=== PATIENT | female | born 1995 | race Caucasian/White ===

== ENCOUNTER 2019-02-28 14:52 | Emergency (ER) | payer BC, OTHER ==
[~2019-02-28] VITALS: Ht 165.1 cm; Wt 73.9 kg
[~2019-02-28 14:52] MED LIST: NO HOME MEDS
[2019-02-28 15:18] VITALS: Ht 165.1 cm; Wt 73.9 kg
[2019-02-28] MEDS ORDERED: ACETAMINOPHEN 500 MG TAB PO STA (16:22)
[2019-02-28] MEDS ORDERED: CEPH-443 PO (18:20)
[2019-02-28 18:35] VITALS: BP 108/63; PULSE 69; RESP 18
--- NOTE | 2019-02-28 19:30 | ERD ---
ER Documentation Chief Complaint Chief Complaint pelvice pain denies bleeding, 14wks preg, , lmp 12/27/18 HPI History of Present Illness: 23-year-old female who denies a past medical history coming in today with complaint of pelvic pain associated symptoms includes headache. Patient reports being approximately 14 weeks; G1, P0. At home pharmacological/nonpharmacological treatment for symptoms: Denies Denies social concerns; Denies recent foreign travel ROS All systems reviewed and are negative except as per history of present illness. Medications Home Meds Active Scripts Cephalexin* (Keflex*) 500 Mg Capsule, 500 MG PO QID for URINE INFECTION for 7 Days, CAP Prov:OLESYA PALOMO Dahlia SCOOPING MACHINE TENDER 02/28/19 Reported Medications [No Home Meds] No Conflict Check 02/07/14 Allergies Allergies: Coded Allergies: No Known Allergies (Unverified Allergy, Unknown, 02/07/14) PMhx/Soc History of Surgery: No Anesthesia Reaction: No Hx Neurological Disorder: No Hx Respiratory Disorders: No Hx Cardiac Disorders: No Hx Psychiatric Problems: No Hx Alcohol Use: No Hx Substance Use: No Hx Tobacco Use: No Smoking Status: Never smoker FmHx Family History: No diabetes, No coronary disease Physical Exam Vitals Vital Signs Date Temp Pulse Resp B/P (MAP) Pulse Ox O2 O2 Flow FiO2 Time Delivery Rate 02/28/19 98.0 69 18 108/63 100 18:35 (78) 02/28/19 98.5 90 18 118/70 97 15:18 (86) Physical Exam Const: No acute distress Head: Atraumatic Eyes: Normal Conjunctiva ENT: Normal External Ears, Nose and Mouth. Neck: Full range of motion. No meningismus. Resp: Clear to auscultation bilaterally Cardio: Regular rate and rhythm, no murmurs Abd: Soft, suprapubic tenderness, non distended. Normal bowel sounds. Skin: No petechiae or rashes Back: No midline or flank tenderness Ext: No cyanosis, or edema Neur: Awake and alert Psych: Normal Mood and Affect Result Diagram: 02/28/19 1702 Results 24 hrs Laboratory Tests Test 02/28/19 17:02 White Blood Count 10.6 10^3/ul Red Blood Count 4.11 10^6/ul Hemoglobin 12.3 g/dl Hematocrit 36.2 % Mean Corpuscular Volume 88.1 fl Mean Corpuscular Hemoglobin 29.9 pg Mean Corpuscular Hemoglobin Concent 34.0 g/dl Red Cell Distribution Width 12.5 % Platelet Count 338 10^3/UL Mean Platelet Volume 9.4 fl Immature Granulocytes % 0.500 % Neutrophils % 63.8 % Lymphocytes % 25.4 % Monocytes % 9.1 % Eosinophils % 0.8 % Basophils % 0.4 % Nucleated Red Blood Cells % 0.0 /100WBC Immature Granulocytes # 0.050 10^3/ul Neutrophils # 6.8 10^3/ul Lymphocytes # 2.7 10^3/ul Monocytes # 1.0 10^3/ul Eosinophils # 0.1 10^3/ul Basophils # 0.0 10^3/ul Nucleated Red Blood Cells # 0.0 10^3/ul Urine Color YELLOW Urine Clarity SLIGHTLY CLOUDY Urine pH 6.0 Urine Specific [place] 1.026 Urine Ketones NEGATIVE mg/dL Urine Nitrite NEGATIVE mg/dL Urine Bilirubin NEGATIVE mg/dL Urine Urobilinogen NEGATIVE mg/dL Urine Leukocyte Esterase 2+ Reece/ul Urine Microscopic RBC 6 /HPF Urine Microscopic WBC 9 /HPF Urine Squamous Epithelial Cells MODERATE /HPF Urine Bacteria MANY /HPF Urine Hemoglobin NEGATIVE mg/dL Urine Glucose NEGATIVE mg/dL Urine Total Protein NEGATIVE mg/dl Beta HCG, Quantitative 779704.0 mIU/ml Current Medications Medications Dose Sig/Oscar Start Time Status Last (Trade) Ordered Route PRN Stop Time Admin Dose Reason Admin 1,000 mg ONCE STAT 02/28/19 DC 02/28/19 Acetaminophen PO 16:22 16:28 (Tylenol 02/28/19 16:25 Tab) Procedures/MDM ED course includes a thorough examination and history. Medications: Acetaminophen for headache Imaging: OB transvaginal and abdominal ultrasound Labs: CBC, beta quantitative, urinalysis, Rh- testing Low suspicion for life-threatening medical emergency. Low suspicion for RULING MACHINE SET UP OPERATOR emergency that requires hospitalization or immediate surgical intervention. Low suspicion for acute abdominal emergency. Otherwise healthy patient presenting with constellation of symptoms likely representing pelvic pain during secondary to urinary tract infection as characterized by history, physical exam findings, lab findings, imaging fi ndings. CBC: no e/o of systemic infection or severe anemia. Beta quantitative is 184k. Rh is O+. Urinalysis positive for 2+ leukocyte Estrace, many bacteria, 9 WBCs, 6 RBCs. Imaging results showing: IMPRESSION: 1. Single live intrauterine of approximately 9 weeks 2 days. 2. Positive cardiac activity. 3. No subchorionic hemorrhage. 4. Ovaries not visualized. There are no adnexal masses. 5. No free fluid RPTAT: HH .Barry Zurita MD, Date Time Electronically viewed and signed by .Barry Zurita MD, MD on 02/28/2019 17:01 Patient reassessment 1820: Patient hemodynamically stable. Results discussed. Decrease in pelvic pain and headache with administration of medication of acetaminophen. Patient verbalizes understanding of discharge instructions as well as plan of care. no respiratory distress, otherwise relatively well appearing and nontoxic. Disposition given. Patient educated on diagnoses, prescriptions, follow-up care, return precautions. Strict return precautions given for worsening condition; questions answered discharge. Disposition for discharge with followup in 2 days with PCP/clinic. Departure Diagnosis: Primary Impression: Pelvic pain in Additional Impression: Urinary tract infection Urinary tract infection type: site unspecified Hematuria presence: with hematuria Qualified Codes: N39.0 - Urinary tract infection, site not specified; R31.9 - Hematuria, unspecified Condition: Stable Patient Instructions: Urinary Tract Infections in Women Referrals: [facility] YOU HAVE RECEIVED A MEDICAL SCREENING EXAM AND THE RESULTS INDICATE THAT YOU DO NOT HAVE A CONDITION THAT REQUIRES URGENT TREATMENT IN THE EMERGENCY DEPARTMENT. FURTHER EVALUATION AND TREATMENT OF YOUR CONDITION CAN WAIT UNTIL YOU ARE SEEN IN YOUR DOCTORS OFFICE WITHIN THE NEXT 1-2 DAYS. IT IS YOUR RESPONSIBILITY TO MAKE AN APPOINTMENT FOR FOLOW-UP CARE. IF YOU HAVE A PRIMARY DOCTOR --you should call your primary doctor and schedule an appointment IF YOU DO NOT HAVE A PRIMARY DOCTOR YOU CAN CALL OUR PHYSICIAN REFERRAL HOTLINE AT IF YOU CAN NOT AFFORD TO SEE A PHYSICIAN YOU CAN CHOSE FROM THE FOLLOWING [facility] [address] [facility] [address] [facility]. [facility] [address] [facility] [address]. [facility] [address] [facility]. [facility]. [address] [facility]. [facility] YOU HAVE RECEIVED A MEDICAL SCREENING EXAM AND THE RESULTS INDICATE THAT YOU DO NOT HAVE A CONDITION THAT REQUIRES URGENT TREATMENT IN THE EMERGENCY DEPARTMENT. FURTHER EVALUATION AND TREATMENT OF YOUR CONDITION CAN WAIT UNTIL YOU ARE SEEN IN YOUR DOCTORS OFFICE WITHIN THE NEXT 1-2 DAYS. IT IS YOUR RESPONSIBILITY TO MAKE AN APPOINTMENT FOR FOL- CARE. IF YOU HAVE A PRIMARY DOCTOR --you should call your primary doctor and schedule and appointment IF YOU DO NOT HAVE A PRIMARY DOCTOR YOU CAN CALL OUR PHYSICIAN REFERRAL HOTLINE AT . IF YOU CAN NOT AFFORD TO SEE A PHYSICIAN YOU CAN CHOSE FROM THE FOLLOWING [facility] INSTITUTIONS: [facility] [address] [place] [address] [facility] [address] [place] [address] [facility] [address] [place] [address] RULING MACHINE SET UP OPER[place] [address] [facility] [address] [place], [place] [id number] OFFICE FAX REJI HDEZNICA [address] [place], [place] [id number] [address] [place] [address] [place], [address], [facility] [address] [address] [address] [place] [address] [facility] [address] [place] [address] [address] [facility] [address] [address] BOYER, JAZMINE [address] [facility] [address] [address] BORREGO, ROMEL [address] [facility]. [address], [place] [address] [address] RAMIREZ, FARID [address] [place] [address] Additional Instructions: Muchas alyssa por permitirnos participar en mendoza cuidado. Mendoza abisai y seguridad es nuestra principal prioridad en [facility]. Es importante leer todas las instrucciones de john y la educacin que se proporcionan en mendoza paquete de john. Llame a mendoza mdico de atencin primaria MAANA para bill carina yen los prximos 2 a 4 chou y lleve toda la informacin y los medicamentos recetados. Llene las recetas y siga exactamente las instrucciones de la etiqueta. -Cefalexina es un antibitico; tome lupis medicamento todos los chou wendy se i ndica en mendoza receta. Debe completar todo el curso de tratamiento que figura en mendoza receta. Gloster es muy importante porque se necesitan varios chou para eliminar las bacterias que causan la infeccin. Si los sntomas empeoran y mendoza proveedor no est disponible, regrese inmediatamente al Departamento de Emergencias. ---- Thank you very much for allowing us to participate in your care. Your health and safety is our top priority at [facility]. It is important to read all discharge instructions and education provided in your discharge packet. Call your primary care doctor TOMORROW for an appointment during the next 2-4 days and bring all the information and medications prescribed. Have prescriptions filled and follow precisely the directions on the label. -Cephalexin is an antibiotic; take this medication every day as listed on your prescription. You must complete the entire course of treatment that is listed on your prescription this is very important because it takes a certain number of days to kill the bacteria that is causing the infection. If the symptoms get worse and your provider is unavailable, return to the Emergency Department immediately. OLESYA PALOMO NP Feb 28, 2019 19:30
== END 2019-02-28 18:36 | disposition home or self-care (01) ==
LOC: FTE 14:52
DX: O26.891 Other specified pregnancy related conditions, first trimester (principal); R10.2 Pelvic and perineal pain; O23.41 Unspecified infection of urinary tract in pregnancy, first trimester; Z3A.09 9 weeks gestation of pregnancy
CPT/HCPCS: 36415; 76801; 81001; 84702; 85025; 86900; 86901; Z7502; Z7610